=== PATIENT | female | born 1965 | race Caucasian/White ===

== ENCOUNTER → 2016-06-28 14:45 | Emergency (ER) | payer OTHER ==
[~2016-06-28] VITALS: Ht 162.6 cm; Wt 66.3 kg
[~2016-06-28 14:45] MED LIST: ADVAIR; ALBUTEROL; ALBUTEROL SULF8.5 GM IH; AMITRIPTYLINE H10 MG PO; ATIVAN0.5 MG PO; CALTRATE 600 +1 EAC2 PO; CLARINEX5 MG PO; CLONAZEPAM; CRESTOR10 MG PO; CYCLOBENZAPRINE5 MG PO; DAILY MULTIVIT1 EAC4 PO; ELAVIL10 MG PO; EPIPEN ADU0.3 MG/0.3 IM; ESCITALOPRAM OX10 MG PO; FIORINAL; FISH OIL500 MG PO; FLEXERIL10 MG PO; IMITREX; KEFLEX500 MG PO; KEPPRA500 MG PO; KEPPRA750 MG PO; KLONOPIN0.5 M1 PO; LEVOTHYROXINE25 MCG PO; LEXAPRO; LEXAPRO20 MG PO; LODINE400 MG PO; LORAZEPAM0.5 MG PO; LOVAZA1 GM PO; MOTRIN800 MG PO; NAPROSYN500 MG PO; NASONEX; NORCO 5/3251 TABLET PO; OXYCODONE HCL5 MG PO; PERCOCET 5/31 TABLET PO; PREDNISONE10 MG PO; PREDNISONE20 MG PO; PROTRIPTYLINE HC5 MG PO; PROVENTIL HFA6.7 GM IH; PROVENTIL,2.5 MG/3 M IH; RELAFEN; SIMVASTATIN20 MG PO; STRATTERA40 MG PO; SUDOGEST60 MG PO; SYNTHROID50 MCG PO; TIZANIDINE HCL4 M1 PO; TRAMADOL HCL50 MG PO; TYLENOL WITH C1 EACH PO; ULTRAM50 MG PO; VENTOLIN HFA18 GM IH; VERAMYST10 GM BOTH NARES; VITAMIN E400 UNI6 PO; XANAX0.5 MG PO; ZANAFLEX2 M1 PO; ZOLOFT25 MG PO
[2016-06-28 14:49] VITALS: BP 122/90
== END | disposition left against medical advice (07) ==
LOC: EME 14:45
DX: M54.5 Low back pain (principal); R51 Headache; Z53.21 Procedure and treatment not carried out due to patient leaving prior to being seen by health care provider

== ENCOUNTER 2017-11-01 01:32 | Emergency (ER) | payer OTHER ==
[~2017-11-01] VITALS: Ht 162.6 cm; Wt 63.6 kg
[~2017-11-01 01:32] MED LIST changes: +ATORVASTATIN CA20 MG PO; +CALCITRATE + D1 EACH PO; +FISH OIL 1,0001 EAC7 PO; +LYRICA100 MG PO; +MAGNESIUM250 MG PO; +VITAMIN E400 UNIT PO; +ZYRTEC5 MG PO
[2017-11-01 01:42] VITALS: BP 134/90
== END 2017-11-01 02:19 | disposition left against medical advice (07) ==
LOC: EME 01:32
DX: R07.9 Chest pain, unspecified (principal); Z53.21 Procedure and treatment not carried out due to patient leaving prior to being seen by health care provider
CPT/HCPCS: 80048; 84484; 85027; 93005